=== PATIENT | male | born 1975 | race Hispanic/Latino ===

== ENCOUNTER 2021-09-21 19:35 | Emergency (ER) | payer BC ==
[~2021-09-21] VITALS: Ht 175.3 cm; Wt 108.9 kg
[2021-09-21 21:44] LABS: BASOPHILS % (AUTO) 0.2 % (0.0-5.0); HEMATOCRIT 48.9 % (42-54); LYMPHOCYTES % (AUTO) 23.6 % (21.0-51.0); MEAN CORPUSCULAR HEMOGLOBIN 30.2 pg (27.0-33.0); MEAN CORPUSCULAR HGB CONC 34.4 g/dL (32.0-36.0); MEAN CORPUSCULAR VOLUME 87.8 fL (79-99); PLATELET COUNT (AUTO) 261 K/uL (130-400); RED BLOOD CELL COUNT(AUTO) 5.57 MIL/uL (4.50-6.20); RED CELL DISTRIBUTION WIDTH 11.8 % (11.0-15.5); WHITE BLOOD COUNT (AUTO) 5.3 K/uL (4.8-10.8)
[2021-09-21 21:52] LABS: POTASSIUM 4.2 mmol/L (3.5-5.1)
[2021-09-21 21:56] LABS: BILIRUBIN,TOTAL 0.6 mg/dL (0.2-1.0); TOTAL PROTEIN, SERUM 7.9 g/dL (6.0-8.3)
[2021-09-21 22:16] LABS: APPEARANCE,URINE Clear (CLEAR); BILIRUBIN,URINE Negative (NEGATIVE); COLOR,URINE Dark Yellow (YELLOW); GLUCOSE, URINE (UA) Negative (NEGATIVE); KETONES,URINE 15 mg/dL (NEGATIVE); LEUKOCYTE ESTERASE ,URINE Negative (NEGATIVE); NITRATE,URINE Negative (NEGATIVE); OCCULT BLOOD,URINE Negative (NEGATIVE); PROTEIN,URINE Trace mg/dL (NEGATIVE)
[2021-09-21 22:56] LABS: RBC,URINE 0-1 /HPF (0-1); WBC,URINE 0-1 /HPF (0-1)
[2021-09-21 22:57] LABS: BACTERIA,URINE Few /HPF (None Seen); MUCUS,URINE Few LPF (None Seen); SQUAMOUS EPITHELIAL CELL,UR Rare /HPF (0-2)
[2021-09-21] MEDS ORDERED: ONDANSETRON 4MG INJ IVP ONE (23:00)
[2021-09-21] MEDS ORDERED: 0.9%NACL 1000ML 1,000 ML IV ONE (23:00)
[2021-09-21] MEDS ORDERED: ONDA4TAB10 PO (23:52)
[2021-09-22 00:08] VITALS: BP 128/69
== END 2021-09-22 00:12 | disposition home or self-care (01) ==
LOC: EDH 19:35
DX: U07.1 COVID-19 (principal); E86.9 Volume depletion, unspecified; R94.5 Abnormal results of liver function studies; R11.2 Nausea with vomiting, unspecified
CPT/HCPCS: 36415; 80053; 81001; 83690; 84484; 85025; 87635; 93005; 96361 ×2; 96374; 99284; C9803; J2405; J7030

== ENCOUNTER 2023-08-23 07:00 | Emergency (ER) | payer BC, OTHER ==
[~2023-08-23] VITALS: Ht 175.3 cm; Wt 113.4 kg
[~2023-08-23 07:00] MED LIST: ONDA4TAB10 PO
[2023-08-23 07:34] LABS: BASOPHILS # (AUTO) 0.04 K/uL (0.00-0.20); BASOPHILS % (AUTO) 0.4 % (0.0-5.0); EOSINOPHILS # (AUTO) 0.32 K/uL (0.00-0.70); EOSINOPHILS % (AUTO) 3.3 % (0.0-8.0); HEMATOCRIT 41.7 % (42-54); IMMATURE GRANULOCYTE ABSOLUTE 0.04 K/uL (0-1); LYMPHOCYTES % (AUTO) 30.4 % (21.0-51.0); MEAN CORPUSCULAR HEMOGLOBIN 30.8 pg (27.0-33.0); MEAN CORPUSCULAR HGB CONC 36.5 g/dL (32.0-36.0); MEAN CORPUSCULAR VOLUME 84.4 fL (79-99); MONOCYTES # (AUTO) 0.8 K/uL (0.1-1.0); MONOCYTES % (AUTO) 7.8 % (3.0-13.0); NEUTROPHILS # (AUTO) 5.6 K/uL (1.8-7.7); NEUTROPHILS % (AUTO) 57.7 % (40.0-77.0); PLATELET COUNT (AUTO) 339 K/uL (130-400); RED BLOOD CELL COUNT(AUTO) 4.94 MIL/uL (4.50-6.20); WHITE BLOOD COUNT (AUTO) 9.7 K/uL (4.8-10.8)
[2023-08-23 07:46] LABS: RAPID GROUP A STREP negative (NEGATIVE)
[2023-08-23 07:48] LABS: ALBUMIN 3.2 g/dL (3.5-5.0); BILIRUBIN,TOTAL 0.7 mg/dL (0.2-1.0); POTASSIUM 3.2 mmol/L (3.5-5.1); TOTAL PROTEIN, SERUM 6.9 g/dL (6.0-8.3)
[2023-08-23 07:54] LABS: SARS-CoV-2, RNA, NAAT NEGATIVE SARS CoV-2 (NEGATIVE)
[2023-08-23 07:57] LABS: INFLUENZA TYPE A Negative For Type A (NEGATIVE); INFLUENZA TYPE B Negative For Type B (NEGATIVE)
[2023-08-23] MEDS ORDERED: 0.9%NACL 1000ML 1,000 ML IV ONE (08:30)
[2023-08-23] MEDS ORDERED: IPRATROPIUM/ALBUTEROL SULFATE 3 ML SOLUTION IH ONE (08:30)
[2023-08-23] MEDS ORDERED: CEFTRIAXONE 1G VIAL IVPB ONE (08:30)
[2023-08-23] MEDS ORDERED: BENZONATATE 100 MG CAPSULE PO ONE (08:30)
[2023-08-23 08:43] VITALS: PULSE 88; RESP 18
[2023-08-23 08:46] LABS: APPEARANCE,URINE CLEAR (CLEAR); BILIRUBIN,URINE NEGATIVE (NEGATIVE); COLOR,URINE LIGHT-YELLOW (YELLOW); GLUCOSE, URINE (UA) NEGATIVE (NEGATIVE); KETONES,URINE NEGATIVE (NEGATIVE); LEUKOCYTE ESTERASE ,URINE NEGATIVE Leu/uL (NEGATIVE); NITRATE,URINE NEGATIVE (NEGATIVE); OCCULT BLOOD,URINE NEGATIVE (NEGATIVE); PH,URINE 5.5 (5.0-8.0); PROTEIN,URINE NEGATIVE (NEGATIVE); UROBILINOGEN,URINE 0.2 mg/dL (0.2-1.0)
[2023-08-23] MEDS ORDERED: KCL 20 MEQ ERTAB PO ONE (09:00)
[2023-08-23 09:26] LABS: ADD UA MICROSCOPIC NO
[2023-08-23] MEDS ORDERED: IOHEXOL-350 75 ML VIAL IV ONE (09:27)
[2023-08-23 10:03] VITALS: BP 124/76; PULSE 82; RESP 18; O2SAT 96
[2023-08-23] MEDS ORDERED: BENZ-39 PO (10:54)
[2023-08-23] MEDS ORDERED: ALBUHFA IH (10:54)
[2023-08-23] MEDS ORDERED: FLUT16H EN (10:54)
[2023-08-23] MEDS ORDERED: AZIT250T PO (10:54)
== END 2023-08-23 11:17 | disposition home or self-care (01) ==
LOC: EDH 07:00
DX: J40 Bronchitis, not specified as acute or chronic (principal); R04.2 Hemoptysis; E87.6 Hypokalemia; E86.9 Volume depletion, unspecified; Z20.822 Contact with and (suspected) exposure to COVID-19
CPT/HCPCS: 99285; 74177; 96374; 71045; 87635; 96361; 83735; 84484; 80053; 83690; 85025; 87880; 87804 ×2; 81003; 36415; 93005; 94640; J0696; Q9967